=== PATIENT | male | born 1965 | race Caucasian/White ===

== ENCOUNTER 2018-03-22 20:06 | Inpatient (IN) ==
[2018-03-22] MEDS ORDERED: SODIUM CHLORIDE 0.9% 500 ML IV STA (20:38)
[2018-03-22] MEDS ORDERED: ASPIRIN 325 MG TABLET PO STA (20:38)
[2018-03-22] MEDS ORDERED: ONDANSETRON 4 MG/2 ML VIAL IV STA (20:38)
[2018-03-22] MEDS ORDERED: NITROGLYCERIN 2% OINT 1 INCH/GM PACK TOP STA (20:38)
[2018-03-22] MEDS ORDERED: ALUM/MAG/SIMETH/LIDO VISC 1:1 30 ML BOTTLE PO STA (20:38)
[2018-03-22] MEDS ORDERED: MORPHINE 4 MG/1 ML VIAL IV STA (20:38)
[2018-03-22 20:52] LABS: Basophils % 0.4 % (0.0-0.8); Eosinophils # 0.1 10*3/uL (0.0-0.87); Eosinophils % 1.9 % (0.00-10.9); Hematocrit 32.7 VOL% (42.0-52.0); Immature Granulocytes % 0.2 %; Immature Granulocytes Absolute 0.01 #; Lymphocytes # 2.1 10*3/uL (1.4-4.0); Lymphocytes % 39.2 % (21.2-54.2); Mean Corpuscular HGB Conc 33.6 GM/DL (32-36); Mean Corpuscular Hemoglobin 32 PG (27-34); Mean Corpuscular Volume 95.6 FL (87-102); Mean Platelet Volume 10.8 FL (9.6-12.0); Monocytes # 0.5 10*3/uL (0.11-0.8); Monocytes % 8.7 % (1.7-12.7); Neutrophils # 2.6 10*3/uL (1.4-7.4); Neutrophils % 49.6 % (38.7-73.9); Platelet Count 91 T/CUMM (130-400); Red Blood Count 3.42 MC/CUMM (3.8-5.5); Red Cell Distribution Width 14.8 % (9.3-17.3); White Blood Count 5.3 T/CUMM (4-12)
[2018-03-22 21:09] LABS: Albumin 3.5 G/DL (3.4-5.0); Bilirubin,Total 0.4 MG/DL (0.2-1.0); Calcium 7.8 MG/DL (8.5-10.1); Osmolality,Calculated 287.8 MOS/KG (273-304); Potassium 3.4 MMOL/L (3.5-5.1); Total Protein 6.3 G/DL (6.4-8.3)
[2018-03-22] MEDS ORDERED: POTASSIUM CHLORIDE 20 MEQ TABLET PO STA (21:17)
[2018-03-22] MEDS ORDERED: MAGNESIUM SULF RIDER 2 GM in PREMIX 1 EACH IV STA (21:17)
[2018-03-22 21:19] LABS: INR 1.1; PT Patient Result 11.2 SECS
[2018-03-22 22:07] LABS: Apearance,Urine CLEAR (Clear); Bilirubin,Urine Negative (Negative); Blood, Urine Negative (Negative); Glucose,Urine (UA) 50 mg/dL (Negative); Ketones,Urine Negative (Negative); Nitrite,Urine Negative (Negative); Protein,Urine Negative; Urine Color Straw (Yellow); Urine Specific Gravity 1.004 (1.001-1.035); Urine Urobilinogen < 2.0 EU/DL (0.2-1.0); WBC,Urine <1 /HPF (0-6)
[2018-03-22] MEDS ORDERED: diphenhydrAMINE CAP 25 MG CAPSULE PO PRN (22:10)
[2018-03-22] MEDS ORDERED: ZALEPLON 5 MG CAPSULE PO PRN (22:10)
[2018-03-22] MEDS ORDERED: MORPHINE 4 MG/1 ML VIAL IV PRN (22:10)
[2018-03-22] MEDS ORDERED: ONDANSETRON 4 MG/2 ML VIAL IV PRN (22:10)
[2018-03-22] MEDS ORDERED: NICOTINE 21 MG/24 HR PATCH TRANSDERM PRN (22:10)
[2018-03-22] MEDS ORDERED: PROMETHAZINE 25 MG/1 ML VIAL IM PRN (22:10)
[2018-03-22 22:19] LABS: Barbiturates Screen,Urine Negative (Negative); Benzodiazepines Screen,Urine Negative (Negative); Cannabinoid Screen,Urine Negative (Negative); Opiate Screen,Urine Negative (Negative); Phencyclidine Screen,Urine Negative (Negative)
[2018-03-22] MEDS ORDERED: GLUCAGON 1 MG VIAL IM PRN (22:34)
[2018-03-22] MEDS ORDERED: DEXTROSE 50% 25 GM/50 ML VIAL IV PRN (22:34)
[2018-03-22] MEDS: SODIUM CHLORIDE 0.9% 1,000 ML IV SCH (23:42)
[2018-03-23] MEDS: KETOROLAC 15 MG/1 ML VIAL IV PRN ×3 (02:13→20:46)
[2018-03-23] MEDS ORDERED: hydrALAZINE 20 MG/1 ML VIAL IV ONE (02:30)
[2018-03-23 03:26] LABS: Basophils % 0.3 % (0.0-0.8); Eosinophils # 0.1 10*3/uL (0.0-0.87); Eosinophils % 1.9 % (0.00-10.9); Hematocrit 33.6 VOL% (42.0-52.0); Hemoglobin 10.9 GM/DL (14.0-18.0); Immature Granulocytes % 0.2 %; Immature Granulocytes Absolute 0.01 #; Lymphocytes # 2.7 10*3/uL (1.4-4.0); Mean Corpuscular HGB Conc 32.4 GM/DL (32-36); Mean Corpuscular Hemoglobin 31 PG (27-34); Mean Corpuscular Volume 94.6 FL (87-102); Mean Platelet Volume 10.6 FL (9.6-12.0); Monocytes # 0.4 10*3/uL (0.11-0.8); Monocytes % 7.6 % (1.7-12.7); Neutrophils # 2.5 10*3/uL (1.4-7.4); Platelet Count 87 T/CUMM (130-400); Red Blood Count 3.55 MC/CUMM (3.8-5.5); Red Cell Distribution Width 14.9 % (9.3-17.3); White Blood Count 5.8 T/CUMM (4-12)
[2018-03-23 03:48] LABS: Albumin 3.3 G/DL (3.4-5.0); Bilirubin,Total 0.4 MG/DL (0.2-1.0); Calcium 7.4 MG/DL (8.5-10.1); Osmolality,Calculated 277.5 MOS/KG (273-304); Potassium 3.4 MMOL/L (3.5-5.1); Total Protein 6.6 G/DL (6.4-8.3)
[2018-03-23 05:03] LABS: Anisocytosis 1+; Band Neutrophils 1 % (0-10); Eosinophils 2 % (0-10); Lymphocytes 42 % (20-55); Platelet Estimate Decreased; Segmented Neutrophils 52 % (50-85); Total Cells Counted 100
[2018-03-23 06:23] LABS: Troponin I < 0.015 NG/ML (0.00-0.045)
[2018-03-23] MEDS: INSULIN LISPRO 100 UNIT/ML SUBCUT SCH ×4 (07:53→20:45)
[2018-03-23] MEDS: POTASSIUM CHLORIDE 20 MEQ TABLET PO PRN ×2 (08:43→14:29)
[2018-03-23] MEDS ORDERED: PANTOPRAZOLE 40 MG VIAL IV SCH (09:00)
[2018-03-23] MEDS: SODIUM CHLORIDE 0.9% 1,000 ML IV SCH ×2 (10:53→20:46)
[2018-03-23] MEDS: amLODIPine 5 MG TABLET PO SCH (13:01)
[2018-03-23 14:54] LABS: Troponin I < 0.015 NG/ML (0.00-0.045)
[2018-03-23] MEDS: PANTOPRAZOLE 40 MG TABLET PO SCH (20:46)
[2018-03-24 04:56] LABS: Basophils % 0.6 % (0.0-0.8); Eosinophils # 0.1 10*3/uL (0.0-0.87); Eosinophils % 2.8 % (0.00-10.9); Hematocrit 35.7 VOL% (42.0-52.0); Hemoglobin 11.5 GM/DL (14.0-18.0); Immature Granulocytes % 0.2 %; Immature Granulocytes Absolute 0.01 #; Lymphocytes # 1.8 10*3/uL (1.4-4.0); Lymphocytes % 38.3 % (21.2-54.2); Mean Corpuscular HGB Conc 32.2 GM/DL (32-36); Mean Corpuscular Hemoglobin 31 PG (27-34); Mean Corpuscular Volume 95.2 FL (87-102); Monocytes # 0.4 10*3/uL (0.11-0.8); Monocytes % 9.1 % (1.7-12.7); Neutrophils # 2.3 10*3/uL (1.4-7.4); Red Blood Count 3.75 MC/CUMM (3.8-5.5); Red Cell Distribution Width 14.7 % (9.3-17.3); White Blood Count 4.7 T/CUMM (4-12)
[2018-03-24 04:59] LABS: Platelet Count 92 T/CUMM (130-400)
[2018-03-24 05:15] LABS: Hypochromasia 1+; Platelet Estimate Decreased
[2018-03-24 05:29] LABS: Calcium 8.1 MG/DL (8.5-10.1); Osmolality,Calculated 282.1 MOS/KG (273-304); Potassium 3.3 MMOL/L (3.5-5.1)
[2018-03-24] MEDS: SODIUM CHLORIDE 0.9% 1,000 ML IV SCH ×2 (07:18→19:10)
[2018-03-24] MEDS: INSULIN LISPRO 100 UNIT/ML SUBCUT SCH ×4 (07:38→20:42)
[2018-03-24] MEDS: KETOROLAC 15 MG/1 ML VIAL IV PRN (07:45)
[2018-03-24] MEDS: amLODIPine 5 MG TABLET PO SCH (09:07)
[2018-03-24] MEDS: PANTOPRAZOLE 40 MG TABLET PO SCH ×2 (09:07→20:42)
[2018-03-24] MEDS: POTASSIUM CHLORIDE 20 MEQ TABLET PO PRN ×3 (11:38→16:09)
[2018-03-24 13:32] LABS: Basophils % 0.5 % (0.0-0.8); Eosinophils # 0.1 10*3/uL (0.0-0.87); Eosinophils % 2.3 % (0.00-10.9); Hematocrit 36.8 VOL% (42.0-52.0); Hemoglobin 12.1 GM/DL (14.0-18.0); Immature Granulocytes % 0.2 %; Immature Granulocytes Absolute 0.01 #; Lymphocytes # 1.4 10*3/uL (1.4-4.0); Lymphocytes % 31.5 % (21.2-54.2); Mean Corpuscular HGB Conc 32.9 GM/DL (32-36); Mean Corpuscular Hemoglobin 32 PG (27-34); Mean Corpuscular Volume 96.1 FL (87-102); Monocytes # 0.4 10*3/uL (0.11-0.8); Monocytes % 9.2 % (1.7-12.7); Neutrophils # 2.5 10*3/uL (1.4-7.4); Neutrophils % 56.3 % (38.7-73.9); Platelet Count 93 T/CUMM (130-400); Red Blood Count 3.83 MC/CUMM (3.8-5.5); Red Cell Distribution Width 14.6 % (9.3-17.3); White Blood Count 4.4 T/CUMM (4-12)
[2018-03-24 14:05] LABS: Calcium 8.1 MG/DL (8.5-10.1); Osmolality,Calculated 282.3 MOS/KG (273-304); Potassium 3.1 MMOL/L (3.5-5.1)
[2018-03-24] MEDS ORDERED: hydrALAZINE 20 MG/1 ML VIAL IV PRN (16:17)
[2018-03-24 16:42] LABS: C-Reactive Protein HS Cardiac 0.33 MG/DL (0-0.3)
[2018-03-24] MEDS: clonazePAM 0.5 MG TABLET PO SCH (20:41)
[2018-03-24] MEDS: CARVEDILOL 3.125 MG TABLET PO SCH (20:42)
[2018-03-25] MEDS: SODIUM CHLORIDE 0.9% 1,000 ML IV SCH (05:37)
[2018-03-25 05:46] LABS: Basophils % 0.5 % (0.0-0.8); Eosinophils # 0.2 10*3/uL (0.0-0.87); Eosinophils % 3.4 % (0.00-10.9); Hematocrit 35.3 VOL% (42.0-52.0); Hemoglobin 11.5 GM/DL (14.0-18.0); Immature Granulocytes % 0.2 %; Immature Granulocytes Absolute 0.01 #; Lymphocytes # 1.7 10*3/uL (1.4-4.0); Lymphocytes % 38.5 % (21.2-54.2); Mean Corpuscular HGB Conc 32.6 GM/DL (32-36); Mean Corpuscular Hemoglobin 32 PG (27-34); Mean Corpuscular Volume 97.5 FL (87-102); Mean Platelet Volume 11.1 FL (9.6-12.0); Monocytes # 0.4 10*3/uL (0.11-0.8); Monocytes % 9.3 % (1.7-12.7); Neutrophils # 2.1 10*3/uL (1.4-7.4); Neutrophils % 48.1 % (38.7-73.9); Platelet Count 103 T/CUMM (130-400); Red Blood Count 3.62 MC/CUMM (3.8-5.5); Red Cell Distribution Width 14.7 % (9.3-17.3); White Blood Count 4.4 T/CUMM (4-12)
[2018-03-25 07:01] LABS: Calcium 8.8 MG/DL (8.5-10.1)
[2018-03-25 07:02] LABS: Osmolality,Calculated 283.3 MOS/KG (273-304); Potassium 4.3 MMOL/L (3.5-5.1)
[2018-03-25 08:05] VITALS: BP 150/79
[2018-03-25] MEDS ORDERED: ASPIRIN EC 81 MG TABLET PO SCH (09:00)
[2018-03-25] MEDS: CARVEDILOL 3.125 MG TABLET PO SCH (09:22)
[2018-03-25] MEDS: PANTOPRAZOLE 40 MG TABLET PO SCH (09:22)
[2018-03-25] MEDS: amLODIPine 5 MG TABLET PO SCH (09:22)
[2018-03-25] MEDS: clonazePAM 0.5 MG TABLET PO SCH (09:23)
[2018-03-25] MEDS: INSULIN LISPRO 100 UNIT/ML SUBCUT SCH ×2 (10:06→10:56)
[2018-03-25] MEDS ORDERED: ATORVASTATIN 40 MG TABLET PO SCH (21:00)
== END 2018-03-25 11:25 | disposition home or self-care (01) | DRG 282 ==
LOC: N.ED 20:06 → SUATTDRO 22:10 → N.EDINP 22:10 → N.3E 23:05
PROVIDERS: ATTEND Hospitalist

== ENCOUNTER 2018-08-27 15:40 | Observation (INO) ==
[2018-08-27 16:12] LABS: Basophils % 0.8 % (0.0-0.8); Eosinophils # 0.1 10*3/uL (0.0-0.87); Eosinophils % 2.5 % (0.00-10.9); Hemoglobin 11.2 GM/DL (14.0-18.0); Immature Granulocytes % 0.3 %; Immature Granulocytes Absolute 0.01 #; Lymphocytes # 1.3 10*3/uL (1.4-4.0); Lymphocytes % 32.6 % (21.2-54.2); Mean Corpuscular HGB Conc 32.9 GM/DL (32-36); Mean Corpuscular Hemoglobin 31 PG (27-34); Mean Platelet Volume 11.4 FL (9.6-12.0); Monocytes # 0.4 10*3/uL (0.11-0.8); Monocytes % 10.8 % (1.7-12.7); Neutrophils # 2.1 10*3/uL (1.4-7.4); Red Blood Count 3.58 MC/CUMM (3.8-5.5)
[2018-08-27 16:14] LABS: Platelet Count 73 T/CUMM (130-400)
[2018-08-27 16:35] LABS: Albumin 2.7 G/DL (3.4-5.0); Bilirubin,Total 2.2 MG/DL (0.2-1.0); Calcium 7.9 MG/DL (8.5-10.1); Osmolality,Calculated 280.7 MOS/KG (273-304); Potassium 3.6 MMOL/L (3.5-5.1); Total Protein 6.3 G/DL (6.4-8.3)
[2018-08-27 16:42] LABS: Apearance,Urine CLEAR (Clear); Bilirubin,Urine Negative (Negative); Blood, Urine Negative (Negative); Glucose,Urine (UA) 150 mg/dL (Negative); Ketones,Urine Negative (Negative); Nitrite,Urine Negative (Negative); Protein,Urine Negative; RBC,Urine 1 /HPF (0-4); Urine Color Yellow (Yellow); Urine Specific Gravity 1.015 (1.001-1.035); WBC,Urine <1 /HPF (0-6)
[2018-08-27 16:43] LABS: Hypochromasia 1+; Platelet Estimate Decreased
[2018-08-27] MEDS ORDERED: NITROGLYCERIN SL 0.4 MG TABLET SL ONE (17:24)
[2018-08-27] MEDS ORDERED: ASPIRIN 325 MG TABLET ONE (17:24)
[2018-08-27] MEDS ORDERED: ASPIRIN 325 MG TABLET PO STA (17:27)
[2018-08-27] MEDS ORDERED: NITROGLYCERIN SL 0.4 MG TABLET SL PRN (17:27)
[2018-08-27] MEDS ORDERED: ENOXAPARIN 100 MG/ML SYRINGE SUBCUT STA (17:27)
[2018-08-27] MEDS ORDERED: ONDANSETRON 4 MG/2 ML VIAL IV PRN (21:25)
[2018-08-27] MEDS ORDERED: GLUCAGON 1 MG VIAL IM PRN (21:25)
[2018-08-27] MEDS ORDERED: DEXTROSE 50% 25 GM/50 ML SYRINGE IV PRN (21:25)
[2018-08-27] MEDS ORDERED: MORPHINE 4 MG/1 ML VIAL IV PRN (21:25)
[2018-08-27] MEDS ORDERED: ACETAMINOPHEN 325 MG TABLET PO PRN (21:25)
[2018-08-27] MEDS ORDERED: ENOXAPARIN 40 MG/0.4 ML SYRINGE SUBCUT SCH (21:30)
[2018-08-27] MEDS: ALUMINUM/MAGNES/SIMETH MAX STR 30 ML UDCUP PO SCH (22:39)
[2018-08-27] MEDS: INSULIN LISPRO 100 UNIT/ML SUBCUT SCH (22:40)
[2018-08-27] MEDS: CARVEDILOL 3.125 MG TABLET PO SCH (23:21)
[2018-08-27] MEDS: clonazePAM 0.5 MG TABLET PO SCH (23:21)
[2018-08-28] MEDS: ALUMINUM/MAGNES/SIMETH MAX STR 30 ML UDCUP PO SCH ×3 (03:05→09:36)
[2018-08-28] MEDS ORDERED: PNEUMOCOCCAL VACCINE (23 VALENT) 0.5 ML VIAL IM ONE (03:23)
[2018-08-28 04:58] LABS: Basophils % 0.3 % (0.0-0.8); Blood Urea Nitrogen 8 MG/DL (7-18); Eosinophils # 0.1 10*3/uL (0.0-0.87); Eosinophils % 2.2 % (0.00-10.9); Glucose 259 MG/DL (74-106); Hematocrit 29.4 VOL% (42.0-52.0); Hemoglobin 9.9 GM/DL (14.0-18.0); Immature Granulocytes % 0.3 %; Immature Granulocytes Absolute 0.01 #; Lymphocytes # 1.3 10*3/uL (1.4-4.0); Lymphocytes % 41.4 % (21.2-54.2); Mean Corpuscular HGB Conc 33.7 GM/DL (32-36); Mean Corpuscular Hemoglobin 31 PG (27-34); Monocytes # 0.3 10*3/uL (0.11-0.8); Monocytes % 10.8 % (1.7-12.7); Neutrophils # 1.4 10*3/uL (1.4-7.4); Osmolality,Calculated 279.8 MOS/KG (273-304); Potassium 3.3 MMOL/L (3.5-5.1); Red Blood Count 3.16 MC/CUMM (3.8-5.5); Red Cell Distribution Width 18.2 % (9.3-17.3); Sodium 137 MMOL/L (136-145); Troponin I < 0.015 NG/ML (0.00-0.045); White Blood Count 3.1 T/CUMM (4-12)
[2018-08-28 05:12] LABS: Platelet Count 64 T/CUMM (130-400)
[2018-08-28] MEDS ORDERED: MAGNESIUM SULF RIDER 4 GM in PREMIX 1 EACH IV PRN (05:24)
[2018-08-28] MEDS ORDERED: MAGNESIUM SULF RIDER 2 GM in PREMIX 1 EACH IV PRN (05:24)
[2018-08-28 06:16] LABS: Hypochromasia 1+
[2018-08-28 06:17] LABS: Platelet Estimate Decreased; Target Cells Few
[2018-08-28] MEDS: POTASSIUM CHLORIDE 20 MEQ TABLET PO PRN ×3 (06:20→11:17)
[2018-08-28] MEDS: CARVEDILOL 3.125 MG TABLET PO SCH (08:34)
[2018-08-28] MEDS: clonazePAM 0.5 MG TABLET PO SCH (08:34)
[2018-08-28] MEDS: OFLOXACIN 0.3% OPH SOLN 10 ML BOTTLE LEFT EYE SCH ×2 (08:38→12:20)
[2018-08-28] MEDS: prednisoLONE ACETATE 1% OPH SUSP 5 ML BOTTLE LEFT EYE SCH ×2 (08:38→12:20)
[2018-08-28] MEDS ORDERED: NON-FORMULARY MEDICATION (Buprenorphine Hcl/Naloxone Hcl [Suboxone 8 Mg-2 Mg Sl Film] 1 EA SL SCH (09:00)
[2018-08-28] MEDS ORDERED: amLODIPine 5 MG TABLET PO SCH (09:00)
[2018-08-28] MEDS ORDERED: PANTOPRAZOLE 40 MG TABLET PO SCH (09:00)
[2018-08-28] MEDS: INSULIN LISPRO 100 UNIT/ML SUBCUT SCH ×2 (09:36→12:01)
[2018-08-28 16:05] VITALS: BP 166/94
== END 2018-08-28 18:23 | disposition home or self-care (01) ==
LOC: N.ED 15:40 → N.EDINP 15:40 → N.TELEN 19:36
PROVIDERS: ADMIT Internal Medicine; ATTEND Internal Medicine

== ENCOUNTER 2018-11-15 12:12 | Inpatient (IN) ==
[2018-11-15] MEDS ORDERED: THIAMINE INJ 100 MG, FOLIC ACID INJ 1 MG, MAGNESIUM SULF INJ 2 GM, MULTIVITAMIN INJ 10 ... IV ONE (13:24)
[2018-11-15] MEDS ORDERED: LORazepam 2 MG/1 ML VIAL IV STA ×2 (13:26→17:52)
[2018-11-15 13:31] LABS: Basophils # 0.1 10*3/uL (0.0-0.2); Basophils % 0.8 % (0.0-0.8); Eosinophils # 0.1 10*3/uL (0.0-0.87); Eosinophils % 1.6 % (0.00-10.9); Hematocrit 33.2 VOL% (42.0-52.0); Immature Granulocytes % 0.9 %; Immature Granulocytes Absolute 0.08 #; Lymphocytes # 2.6 10*3/uL (1.4-4.0); Lymphocytes % 29.5 % (21.2-54.2); Mean Corpuscular HGB Conc 33.1 GM/DL (32-36); Mean Corpuscular Volume 91.5 FL (87-102); Monocytes % 17.7 % (1.7-12.7); Neutrophils % 49.5 % (38.7-73.9); Platelet Count 136 T/CUMM (130-400); Red Blood Count 3.63 MC/CUMM (3.8-5.5); Red Cell Distribution Width 14.2 % (9.3-17.3); White Blood Count 8.7 T/CUMM (4-12)
[2018-11-15 13:46] LABS: Alanine Aminotransferase 95 U/L (16-61); Albumin 3.4 G/DL (3.4-5.0); Alkaline Phosphatase 119 U/L (45-117); Aspartate Amino Transferase 89 U/L (0-37); Blood Urea Nitrogen 46 MG/DL (7-18); Calcium 9.5 MG/DL (8.5-10.1); Glucose 139 MG/DL (74-106); Osmolality,Calculated 277.5 MOS/KG (273-304); Total Protein 7.4 G/DL (6.4-8.3)
[2018-11-15 14:46] LABS: Eosinophils 6 % (0-10); Lymphocytes 27 % (20-55); Segmented Neutrophils 56 % (50-85); Total Cells Counted 100
[2018-11-15 14:48] LABS: Platelet Estimate Normal
[2018-11-15 14:49] LABS: Anisocytosis 1+; Poikilocytosis 1+
[2018-11-15 14:50] LABS: Hypochromasia 1+; Polychromasia Few; Stomatocytes Few
[2018-11-15 14:52] LABS: Barbiturates Screen,Urine Negative (Negative); Benzodiazepines Screen,Urine Negative (Negative); Cannabinoid Screen,Urine Negative (Negative); Opiate Screen,Urine Negative (Negative); Phencyclidine Screen,Urine Negative (Negative)
[2018-11-15] MEDS ORDERED: LACTATED RINGERS 1,000 ML IV ONE (17:38)
[2018-11-15] MEDS ORDERED: SODIUM CHLORIDE 0.9% 1,000 ML IV STA (17:51)
[2018-11-15] MEDS ORDERED: THIAMINE 200 MG/2 ML VIAL ONE (17:56)
[2018-11-15] MEDS ORDERED: DEXTROSE 10% 250 ML BAG IV PRN (17:57)
[2018-11-15] MEDS ORDERED: GLUCAGON 1 MG VIAL IM PRN (17:57)
[2018-11-15] MEDS ORDERED: ONDANSETRON 4 MG/2 ML VIAL IV PRN (17:57)
[2018-11-15] MEDS ORDERED: NICOTINE 21 MG/24 HR PATCH TRANSDERM PRN (17:57)
[2018-11-15] MEDS ORDERED: LORazepam 2 MG/1 ML VIAL IV PRN (17:57)
[2018-11-15] MEDS ORDERED: ACETAMINOPHEN 325 MG TABLET PO PRN (17:57)
[2018-11-15] MEDS ORDERED: THIAMINE 200 MG/2 ML VIAL IV STA (18:38)
[2018-11-15] MEDS: chlordiazePOXIDE 25 MG CAPSULE PO SCH (20:13)
[2018-11-15] MEDS: ENOXAPARIN 30 MG/0.3 ML SYRINGE SUBCUT SCH (20:14)
[2018-11-15] MEDS ORDERED: PNEUMOCOCCAL VACCINE (23 VALENT) 0.5 ML VIAL IM ONE (20:29)
[2018-11-15] MEDS: INSULIN LISPRO 100 UNIT/ML SUBCUT SCH (22:02)
[2018-11-15] MEDS: SODIUM CHLORIDE 0.9% 1,000 ML IV SCH (22:30)
[2018-11-16] MEDS: BUPRENORPHINE SL TAB 2 MG TABLET SL SCH ×4 (00:10→21:06)
[2018-11-16] MEDS: chlordiazePOXIDE 25 MG CAPSULE PO SCH ×4 (04:05→21:07)
[2018-11-16 05:07] LABS: Basophils # 0.1 10*3/uL (0.0-0.2); Basophils % 0.9 % (0.0-0.8); Eosinophils # 0.1 10*3/uL (0.0-0.87); Eosinophils % 2.4 % (0.00-10.9); Hematocrit 36.3 VOL% (42.0-52.0); Hemoglobin 11.7 GM/DL (14.0-18.0); Immature Granulocytes % 0.7 %; Immature Granulocytes Absolute 0.04 #; Lymphocytes # 2.2 10*3/uL (1.4-4.0); Lymphocytes % 36.8 % (21.2-54.2); Mean Corpuscular HGB Conc 32.2 GM/DL (32-36); Mean Platelet Volume 11.4 FL (9.6-12.0); Monocytes % 15.9 % (1.7-12.7); Neutrophils % 43.3 % (38.7-73.9); Platelet Count 132 T/CUMM (130-400); Red Blood Count 3.86 MC/CUMM (3.8-5.5); Red Cell Distribution Width 14.2 % (9.3-17.3); White Blood Count 5.8 T/CUMM (4-12)
[2018-11-16 05:35] LABS: Eosinophils 6 % (0-10); Hypochromasia 1+; Lymphocytes 33 % (20-55); Platelet Estimate Adequate; Segmented Neutrophils 47 % (50-85); Total Cells Counted 100
[2018-11-16 05:51] LABS: Albumin 3.5 G/DL (3.4-5.0); Bilirubin,Total 3.6 MG/DL (0.2-1.0); Calcium 9.2 MG/DL (8.5-10.1); Osmolality,Calculated 284.7 MOS/KG (273-304); Thyroid Stimulating Hormone 0.954 uIU/ml (0.358-3.74); Total Protein 7.3 G/DL (6.4-8.3)
[2018-11-16] MEDS: SODIUM CHLORIDE 0.9% 1,000 ML IV SCH ×6 (06:44→22:45)
[2018-11-16] MEDS: INSULIN LISPRO 100 UNIT/ML SUBCUT SCH ×4 (08:58→21:07)
[2018-11-16] MEDS: PANTOPRAZOLE 40 MG TABLET PO SCH (09:14)
[2018-11-16] MEDS: POTASSIUM CHLORIDE 20 MEQ TABLET PO SCH ×3 (09:14→16:47)
[2018-11-16] MEDS: THIAMINE 200 MG/2 ML VIAL IV SCH ×2 (09:15→21:06)
[2018-11-16] MEDS ORDERED: THIAMINE INJ 100 MG, FOLIC ACID INJ 1 MG, MAGNESIUM SULF INJ 2 GM, MULTIVITAMIN INJ 10 ... IV SCH (14:00)
[2018-11-16] MEDS ORDERED: POTASSIUM CHLORIDE 20 MEQ TABLET PO ONE (17:00)
[2018-11-16] MEDS: ENOXAPARIN 30 MG/0.3 ML SYRINGE SUBCUT SCH (21:06)
[2018-11-17] MEDS: SODIUM CHLORIDE 0.9% 1,000 ML IV SCH ×2 (02:03→07:01)
[2018-11-17] MEDS: chlordiazePOXIDE 25 MG CAPSULE PO SCH ×3 (05:05→22:01)
[2018-11-17] MEDS: BUPRENORPHINE SL TAB 2 MG TABLET SL SCH ×3 (05:05→22:01)
[2018-11-17 05:58] LABS: Basophils % 0.9 % (0.0-0.8); Eosinophils # 0.1 10*3/uL (0.0-0.87); Eosinophils % 1.5 % (0.00-10.9); Hematocrit 33.6 VOL% (42.0-52.0); Hemoglobin 10.5 GM/DL (14.0-18.0); Immature Granulocytes % 0.4 %; Immature Granulocytes Absolute 0.02 #; Lymphocytes # 1.6 10*3/uL (1.4-4.0); Lymphocytes % 33.2 % (21.2-54.2); Mean Corpuscular HGB Conc 31.3 GM/DL (32-36); Mean Platelet Volume 11.6 FL (9.6-12.0); Monocytes % 16.7 % (1.7-12.7); Neutrophils % 47.3 % (38.7-73.9); Platelet Count 108 T/CUMM (130-400); Red Cell Distribution Width 14.2 % (9.3-17.3); White Blood Count 4.7 T/CUMM (4-12)
[2018-11-17 06:35] LABS: Band Neutrophils 1 % (0-10); Eosinophils 3 % (0-10); Lymphocytes 33 % (20-55); Platelet Estimate Decreased; Segmented Neutrophils 52 % (50-85); Total Cells Counted 100
[2018-11-17 06:36] LABS: Hypochromasia 1+
[2018-11-17 06:39] LABS: Bilirubin,Total 2.4 MG/DL (0.2-1.0); Calcium 8.5 MG/DL (8.5-10.1); Osmolality,Calculated 285.5 MOS/KG (273-304); Total Protein 6.5 G/DL (6.4-8.3)
[2018-11-17] MEDS: PANTOPRAZOLE 40 MG TABLET PO SCH (08:52)
[2018-11-17] MEDS: INSULIN LISPRO 100 UNIT/ML SUBCUT SCH ×4 (08:52→22:58)
[2018-11-17] MEDS: THIAMINE 200 MG/2 ML VIAL IV SCH (08:53)
[2018-11-17] MEDS ORDERED: FOLIC ACID INJ 1 MG in SYRINGE 1 EACH IV SCH (09:00)
[2018-11-17] MEDS: ENOXAPARIN 30 MG/0.3 ML SYRINGE SUBCUT SCH (22:01)
[2018-11-17] MEDS: THIAMINE 100 MG TABLET PO SCH (22:58)
[2018-11-18] MEDS: chlordiazePOXIDE 25 MG CAPSULE PO SCH ×2 (04:43→12:34)
[2018-11-18 05:23] LABS: Basophils # 0.1 10*3/uL (0.0-0.2); Basophils % 0.8 % (0.0-0.8); Eosinophils # 0.1 10*3/uL (0.0-0.87); Eosinophils % 1.2 % (0.00-10.9); Hematocrit 35.9 VOL% (42.0-52.0); Hemoglobin 11.5 GM/DL (14.0-18.0); Immature Granulocytes % 0.3 %; Immature Granulocytes Absolute 0.02 #; Lymphocytes # 1.8 10*3/uL (1.4-4.0); Lymphocytes % 27.9 % (21.2-54.2); Monocytes % 14.2 % (1.7-12.7); Neutrophils % 55.6 % (38.7-73.9); Platelet Count 119 T/CUMM (130-400); Red Blood Count 3.78 MC/CUMM (3.8-5.5); Red Cell Distribution Width 14.3 % (9.3-17.3); White Blood Count 6.5 T/CUMM (4-12)
[2018-11-18 05:41] LABS: Albumin 3.4 G/DL (3.4-5.0); Calcium 9.3 MG/DL (8.5-10.1); Osmolality,Calculated 277.8 MOS/KG (273-304); Total Protein 7.7 G/DL (6.4-8.3)
[2018-11-18] MEDS ORDERED: FOLIC ACID 1 MG TABLET PO SCH (09:00)
[2018-11-18] MEDS: BUPRENORPHINE SL TAB 2 MG TABLET SL SCH (09:34)
[2018-11-18] MEDS: PANTOPRAZOLE 40 MG TABLET PO SCH (09:34)
[2018-11-18] MEDS: THIAMINE 100 MG TABLET PO SCH (09:34)
[2018-11-18] MEDS: INSULIN LISPRO 100 UNIT/ML SUBCUT SCH ×2 (10:27→12:32)
[2018-11-18 12:20] VITALS: BP 130/82
== END 2018-11-18 14:45 | DRG 772 ==
LOC: N.ED 12:12 → N.EDINP 12:12 → N.CC 19:42 → SUATTDRO 11-16 08:04 → N.4E 11-17 18:06
PROVIDERS: ADMIT Internal Medicine; ATTEND Family Medicine

== ENCOUNTER 2019-12-03 11:39 | Observation (INO) ==
[2019-12-03 13:20] LABS: Basophils % 0.4 % (0.0-0.8); Eosinophils # 0.1 10*3/uL (0.0-0.87); Eosinophils % 0.7 % (0.00-10.9); Hematocrit 38.6 VOL% (42.0-52.0); Immature Granulocytes % 0.5 %; Immature Granulocytes Absolute 0.04 #; Lymphocytes % 12.4 % (21.2-54.2); Mean Corpuscular HGB Conc 33.7 GM/DL (32-36); Mean Corpuscular Volume 93.7 FL (87-102); Monocytes % 6.5 % (1.7-12.7); Neutrophils % 79.5 % (38.7-73.9); Platelet Count 103 T/CUMM (130-400); Red Blood Count 4.12 MC/CUMM (3.8-5.5); Red Cell Distribution Width 13.9 % (9.3-17.3); White Blood Count 8.2 T/CUMM (4-12)
[2019-12-03 13:37] LABS: Alanine Aminotransferase 61 U/L (16-61); Albumin 4.3 G/DL (3.4-5.0); Alkaline Phosphatase 123 U/L (45-117); Aspartate Amino Transferase 50 U/L (0-37); Blood Urea Nitrogen 7 MG/DL (7-18); Calcium 8.9 MG/DL (8.5-10.1); Estimated Glom Filtration Rate 87 ML/MIN; Glucose 131 MG/DL (74-106); Osmolality,Calculated 274.7 MOS/KG (273-304); Total Protein 7.8 G/DL (6.4-8.3)
[2019-12-03 13:40] LABS: Acetaminophen < 2.0 UG/ML (10-30); Salicylate < 2.8 MG/DL (2.8-20)
[2019-12-03] MEDS ORDERED: POTASSIUM CHLORIDE 8 MEQ CAPSULE PO STA (13:43)
[2019-12-03] MEDS ORDERED: LORazepam 2 MG/1 ML VIAL IV STA (14:04)
[2019-12-03] MEDS ORDERED: HALOPERIDOL 5 MG/ML AMP IV STA (14:04)
[2019-12-03 14:07] LABS: Barbiturates Screen,Urine Negative (Negative); Benzodiazepines Screen,Urine Negative (Negative); Cannabinoid Screen,Urine Negative (Negative); Opiate Screen,Urine Negative (Negative); Phencyclidine Screen,Urine Negative (Negative)
[2019-12-03] MEDS ORDERED: GLUCAGON 1 MG VIAL IM PRN (18:30)
[2019-12-03] MEDS ORDERED: DEXTROSE 50% 25 GM/50 ML VIAL IV PRN (18:30)
[2019-12-03] MEDS ORDERED: hydrALAZINE 20 MG/1 ML VIAL IV PRN (18:30)
[2019-12-03] MEDS ORDERED: ONDANSETRON 4 MG/2 ML VIAL IV PRN (18:30)
[2019-12-03] MEDS: POTASSIUM CHLORIDE RIDER 10 MEQ in PREMIX 1 EACH IV PRN ×2 (19:50→21:50)
[2019-12-03] MEDS: THIAMINE INJ 100 MG, FOLIC ACID INJ 1 MG, MULTIVITAMIN INJ 10 ML in SODIUM CHLORIDE 0.9... IV SCH (20:57)
[2019-12-03] MEDS: ENOXAPARIN 40 MG/0.4 ML SYRINGE SUBCUT SCH (20:57)
[2019-12-03] MEDS ORDERED: BUPRENORPHINE NALOXONE SL SCH (21:00)
[2019-12-04] MEDS: POTASSIUM CHLORIDE RIDER 10 MEQ in PREMIX 1 EACH IV PRN ×3 (01:13→03:22)
[2019-12-04 05:22] LABS: Basophils % 0.3 % (0.0-0.8); Eosinophils # 0.1 10*3/uL (0.0-0.87); Eosinophils % 2.1 % (0.00-10.9); Hematocrit 35.2 VOL% (42.0-52.0); Hemoglobin 11.7 GM/DL (14.0-18.0); Immature Granulocytes % 0.3 %; Immature Granulocytes Absolute 0.02 #; Lymphocytes # 1.9 10*3/uL (1.4-4.0); Lymphocytes % 30.3 % (21.2-54.2); Mean Corpuscular HGB Conc 33.2 GM/DL (32-36); Mean Corpuscular Volume 93.9 FL (87-102); Mean Platelet Volume 10.2 FL (9.6-12.0); Red Blood Count 3.75 MC/CUMM (3.8-5.5); Red Cell Distribution Width 14.2 % (9.3-17.3); White Blood Count 6.1 T/CUMM (4-12)
[2019-12-04 05:30] LABS: Platelet Count 92 T/CUMM (130-400)
[2019-12-04 05:53] LABS: Anisocytosis 1+; Polychromasia Slight
[2019-12-04 05:54] LABS: Platelet Estimate Decreased
[2019-12-04 06:06] LABS: Calcium 8.1 MG/DL (8.5-10.1); Osmolality,Calculated 279.1 MOS/KG (273-304)
[2019-12-04 06:45] LABS: Albumin 3.4 G/DL (3.4-5.0); Bilirubin,Direct 0.61 MG/DL (0.0-0.20); Bilirubin,Indirect 0.7 MG/DL (0.0-1.0); Bilirubin,Total 1.3 MG/DL (0.2-1.0); Total Protein 6.5 G/DL (6.4-8.3)
[2019-12-04] MEDS: lisinopriL 10 MG TABLET PO SCH (09:40)
[2019-12-04] MEDS: POTASSIUM CHLORIDE INJ 30 MEQ in LACTATED RINGERS 1,000 ML IV SCH (09:41)
[2019-12-04] MEDS: POTASSIUM CHLORIDE 20 MEQ TABLET PO SCH ×2 (09:41→13:20)
[2019-12-04] MEDS ORDERED: MAGNESIUM SULF RIDER 4 GM in PREMIX 1 EACH IV ONE (10:31)
[2019-12-04] MEDS ORDERED: PREGABALIN 100 MG CAPSULE PO SCH (21:00)
[2019-12-04] MEDS: THIAMINE INJ 100 MG, FOLIC ACID INJ 1 MG, MULTIVITAMIN INJ 10 ML in SODIUM CHLORIDE 0.9... IV SCH (21:26)
[2019-12-04] MEDS: ENOXAPARIN 40 MG/0.4 ML SYRINGE SUBCUT SCH (21:26)
[2019-12-04] MEDS: PREGABALIN 75 MG CAPSULE PO SCH (21:26)
[2019-12-05 02:33] LABS: Apearance,Urine CLEAR (Clear); Bilirubin,Urine Negative (Negative); Blood, Urine Negative (Negative); Glucose,Urine (UA) Negative (Negative); Ketones,Urine Negative (Negative); Mucus,Urine Occasional /LPF (Occasional); Nitrite,Urine Negative (Negative); Protein,Urine Negative; RBC,Urine <1 /HPF (0-4); Urine Color Yellow (Yellow); Urine Specific Gravity 1.013 (1.001-1.035); WBC,Urine 1 /HPF (0-6)
[2019-12-05 06:14] LABS: Osmolality,Calculated 276.5 MOS/KG (273-304)
[2019-12-05] MEDS ORDERED: POTASSIUM CHLORIDE 20 MEQ TABLET PO ONE (07:18)
[2019-12-05 08:55] VITALS: BP 138/80
[2019-12-05] MEDS: PREGABALIN 75 MG CAPSULE PO SCH (09:34)
[2019-12-05] MEDS: lisinopriL 10 MG TABLET PO SCH (09:34)
[2019-12-05] MEDS: POTASSIUM CHLORIDE INJ 30 MEQ in LACTATED RINGERS 1,000 ML IV SCH ×2 (09:35)
== END 2019-12-05 13:00 | disposition home or self-care (01) ==
LOC: N.ED 11:39 → N.EDINP 11:39 → N.TELES 18:51
PROVIDERS: ADMIT Internal Medicine; ATTEND Internal Medicine

== ENCOUNTER 2020-02-22 16:33 | Inpatient (IN) ==
[2020-02-22] MEDS ORDERED: SODIUM CHLORIDE 0.9% 500 ML IV STA (18:56)
[2020-02-22] MEDS ORDERED: PANTOPRAZOLE 40 MG VIAL IV STA (18:56)
[2020-02-22] MEDS ORDERED: ONDANSETRON 4 MG/2 ML VIAL IV STA (18:56)
[2020-02-22] MEDS ORDERED: KETOROLAC 30 MG/1 ML VIAL IV STA (18:56)
[2020-02-22 19:04] LABS: Basophils % 0.5 % (0.0-0.8); Eosinophils # 0.1 10*3/uL (0.0-0.87); Eosinophils % 1.3 % (0.00-10.9); Hemoglobin 13.7 GM/DL (14.0-18.0); Immature Granulocytes % 0.2 %; Immature Granulocytes Absolute 0.01 #; Lymphocytes # 2.5 10*3/uL (1.4-4.0); Lymphocytes % 45.9 % (21.2-54.2); Mean Corpuscular HGB Conc 35.1 GM/DL (32-36); Mean Corpuscular Volume 90.5 FL (87-102); Mean Platelet Volume 10.8 FL (9.6-12.0); Monocytes % 6.6 % (1.7-12.7); Neutrophils % 45.5 % (38.7-73.9); Platelet Count 76 T/CUMM (130-400); Red Blood Count 4.31 MC/CUMM (3.8-5.5); Red Cell Distribution Width 14.6 % (9.3-17.3); White Blood Count 5.5 T/CUMM (4-12)
[2020-02-22 20:01] LABS: Albumin 3.7 G/DL (3.4-5.0); Bilirubin,Total 0.7 MG/DL (0.2-1.0); Calcium 8.6 MG/DL (8.5-10.1); Osmolality,Calculated 273.1 MOS/KG (273-304); Total Protein 7.4 G/DL (6.4-8.3)
[2020-02-22 20:25] LABS: Risk Ratio 14.88
[2020-02-22] MEDS ORDERED: hydrALAZINE 20 MG/1 ML VIAL IV PRN (22:04)
[2020-02-22] MEDS ORDERED: NICOTINE 21 MG/24 HR PATCH TRANSDERM PRN (22:04)
[2020-02-22] MEDS ORDERED: guaiFENesin/DM ER 600-30 MG TABLET PO PRN (22:04)
[2020-02-22] MEDS ORDERED: DEXTROSE 50% 25 GM/50 ML VIAL IV PRN (22:04)
[2020-02-22] MEDS ORDERED: ONDANSETRON 4 MG/2 ML VIAL IV PRN (22:04)
[2020-02-22] MEDS ORDERED: diphenhydrAMINE CAP 25 MG CAPSULE PO PRN (22:04)
[2020-02-22] MEDS ORDERED: GLUCAGON 1 MG VIAL IM PRN (22:04)
[2020-02-22 22:41] LABS: Bilirubin,Urine Negative (Negative); Blood, Urine Negative (Negative); Glucose,Urine (UA) Negative (Negative); Ketones,Urine Negative (Negative); Nitrite,Urine Negative (Negative); Protein,Urine Negative; RBC,Urine <1 /HPF (0-4); Urine Appearance CLEAR (Clear); Urine Color Straw (Yellow); Urine Specific Gravity 1.003 (1.001-1.035); Urine Urobilinogen < 2.0 EU/DL (0.2-1.0); WBC,Urine <1 /HPF (0-6)
[2020-02-22 22:46] LABS: Barbiturates Screen,Urine Negative (Negative); Benzodiazepines Screen,Urine Negative (Negative); Cannabinoid Screen,Urine Negative (Negative); Opiate Screen,Urine Negative (Negative); Phencyclidine Screen,Urine Negative (Negative)
[2020-02-22] MEDS: SODIUM CHLORIDE 0.9% 1,000 ML IV SCH (23:00)
[2020-02-23] MEDS ORDERED: POTASSIUM CHLORIDE 20 MEQ TABLET PO ONE (05:20)
[2020-02-23] MEDS: THIAMINE INJ 100 MG, FOLIC ACID INJ 1 MG, MULTIVITAMIN INJ 10 ML in SODIUM CHLORIDE 0.9... IV SCH (06:34)
[2020-02-23 10:15] LABS: Albumin 3.3 G/DL (3.4-5.0); Bilirubin,Direct 0.44 MG/DL (0.0-0.20); Bilirubin,Indirect 0.4 MG/DL (0.0-1.0); Bilirubin,Total 0.8 MG/DL (0.2-1.0); Calcium 8.1 MG/DL (8.5-10.1); Osmolality,Calculated 281.3 MOS/KG (273-304); Total Protein 6.6 G/DL (6.4-8.3)
[2020-02-23] MEDS: PREGABALIN 100 MG CAPSULE PO SCH ×2 (10:15→21:34)
[2020-02-23] MEDS: LISINOPRIL/HCTZ 20-25 MG TABLET PO SCH (10:16)
[2020-02-23] MEDS: chlordiazePOXIDE 25 MG CAPSULE PO SCH ×3 (10:16→21:34)
[2020-02-23 10:19] LABS: INR 1.4; PT Patient Result 15.1 SECS (9.8-11.9); Partial Thromboplastin Time 27.6 SECS (23.9-33.8)
[2020-02-23 12:13] LABS: Hepatitis B Core IgM Quant 0.05 Index; Hepatitis B Surface Ag Result Negative (Negative); Hepatitis C Virus Ab Quant 10.16 Index
[2020-02-23 12:15] LABS: Hepatitis B Surface Ag Quant 0.11 Index; Hepatitis C Virus Ab Result Positive (Negative)
[2020-02-23] MEDS: LACTULOSE 20 GM/30 ML UDCUP PO PRN (16:29)
[2020-02-23] MEDS: SODIUM CHLORIDE 0.9% 1,000 ML IV SCH ×2 (16:30→16:50)
[2020-02-23] MEDS ORDERED: LIDOCAINE 2% TOP JELLY 20 ML VIAL INTRAURETH ONE (17:29)
[2020-02-23] MEDS ORDERED: ATORVASTATIN 10 MG TABLET PO SCH (21:00)
[2020-02-24] MEDS: SODIUM CHLORIDE 0.9% 1,000 ML IV SCH ×2 (00:58→18:04)
[2020-02-24] MEDS: THIAMINE INJ 100 MG, FOLIC ACID INJ 1 MG, MULTIVITAMIN INJ 10 ML in SODIUM CHLORIDE 0.9... IV SCH (05:40)
[2020-02-24 06:29] LABS: Basophils % 0.5 % (0.0-0.8); Eosinophils # 0.1 10*3/uL (0.0-0.87); Eosinophils % 1.3 % (0.00-10.9); Hematocrit 38.7 VOL% (42.0-52.0); Hemoglobin 13.1 GM/DL (14.0-18.0); Immature Granulocytes % 0.3 %; Immature Granulocytes Absolute 0.01 #; Lymphocytes % 26.6 % (21.2-54.2); Mean Corpuscular HGB Conc 33.9 GM/DL (32-36); Mean Corpuscular Volume 92.4 FL (87-102); Mean Platelet Volume 11.4 FL (9.6-12.0); Monocytes % 4.4 % (1.7-12.7); Neutrophils % 66.9 % (38.7-73.9); Red Blood Count 4.19 MC/CUMM (3.8-5.5); Red Cell Distribution Width 14.6 % (9.3-17.3); White Blood Count 3.8 T/CUMM (4-12)
[2020-02-24 06:30] LABS: Platelet Count 49 T/CUMM (130-400)
[2020-02-24 06:36] LABS: % Iron Saturation 73.2 % (18-50)
[2020-02-24 06:46] LABS: Albumin 3.3 G/DL (3.4-5.0); Bilirubin,Total 1.7 MG/DL (0.2-1.0); Calcium 8.1 MG/DL (8.5-10.1); Osmolality,Calculated 273.8 MOS/KG (273-304); Total Protein 6.7 G/DL (6.4-8.3)
[2020-02-24 06:55] LABS: Hypochromasia 1+; Microcytosis 1+; Platelet Estimate Decreased
[2020-02-24] MEDS: LACTULOSE 20 GM/30 ML UDCUP PO PRN (10:05)
[2020-02-24] MEDS: PREGABALIN 100 MG CAPSULE PO SCH ×2 (10:05→20:40)
[2020-02-24] MEDS: chlordiazePOXIDE 25 MG CAPSULE PO SCH ×4 (10:05→20:40)
[2020-02-24] MEDS: LISINOPRIL/HCTZ 20-25 MG TABLET PO SCH (10:06)
[2020-02-24] MEDS: LACTULOSE 20 GM/30 ML UDCUP PO SCH (20:39)
[2020-02-25] MEDS ORDERED: ACETAMINOPHEN 325 MG TABLET PO ONE (00:23)
[2020-02-25] MEDS: SODIUM CHLORIDE 0.9% 1,000 ML IV SCH ×2 (00:49→15:28)
[2020-02-25] MEDS: THIAMINE INJ 100 MG, FOLIC ACID INJ 1 MG, MULTIVITAMIN INJ 10 ML in SODIUM CHLORIDE 0.9... IV SCH (06:05)
[2020-02-25 08:02] LABS: Basophils % 0.3 % (0.0-0.8); Eosinophils # 0.1 10*3/uL (0.0-0.87); Eosinophils % 1.5 % (0.00-10.9); Hematocrit 36.6 VOL% (42.0-52.0); Hemoglobin 12.4 GM/DL (14.0-18.0); Immature Granulocytes % 0.3 %; Immature Granulocytes Absolute 0.02 #; Lymphocytes % 17.2 % (21.2-54.2); Mean Corpuscular HGB Conc 33.9 GM/DL (32-36); Mean Corpuscular Volume 91.3 FL (87-102); Mean Platelet Volume 11.7 FL (9.6-12.0); Monocytes % 7.4 % (1.7-12.7); Neutrophils % 73.3 % (38.7-73.9); Red Blood Count 4.01 MC/CUMM (3.8-5.5); Red Cell Distribution Width 14.2 % (9.3-17.3); White Blood Count 5.8 T/CUMM (4-12)
[2020-02-25 08:07] LABS: Platelet Count 37 T/CUMM (130-400)
[2020-02-25 08:18] LABS: Hypochromasia 1+
[2020-02-25 08:19] LABS: Microcytosis Slight; Platelet Estimate Decreased
[2020-02-25 08:22] LABS: Albumin 3.1 G/DL (3.4-5.0); Albumin 3.2 G/DL (3.4-5.0); Bilirubin,Direct 1.3 MG/DL (0.0-0.20); Bilirubin,Total 2.3 MG/DL (0.2-1.0); Bilirubin,Total 2.4 MG/DL (0.2-1.0); Calcium 8.2 MG/DL (8.5-10.1); Ferritin 433.5 ng/ml (26-388); Osmolality,Calculated 276.5 MOS/KG (273-304); Total Protein 6.9 G/DL (6.4-8.3)
[2020-02-25] MEDS: LISINOPRIL/HCTZ 20-25 MG TABLET PO SCH (09:26)
[2020-02-25] MEDS: PREGABALIN 100 MG CAPSULE PO SCH (09:27)
[2020-02-25] MEDS: LACTULOSE 20 GM/30 ML UDCUP PO SCH (09:28)
[2020-02-25 13:21] VITALS: BP 136/73
== END 2020-02-25 15:35 | disposition home or self-care (01) | DRG 280 ==
LOC: N.ED 16:33 → N.EDINP 16:33 → N.5E 02-23 09:30 → SUATTDRO 02-24 12:24
PROVIDERS: ADMIT Internal Medicine; ATTEND Emergency Medicine